=== PATIENT | female | born 1940 | race Caucasian/White ===

== ENCOUNTER 2022-04-19 13:15 | Emergency (ER) | payer OTHER ==
--- NOTE | 2022-04-19 14:31 | RAD REPORT ---
EXAM DESCRIPTION: CT - Head C Spine Cap Wo Con - 04/19/2022 2:08 pm CLINICAL HISTORY: Head and neck injury with chest and abdominal pain status post fall TECHNIQUE: Computed axial tomography of head, neck, chest, abdomen and pelvis obtained. IV and oral contrast not requested. Coronal and sagittal reconstruction performed. All CT scans are performed using dose optimization technique as appropriate and may include automated exposure control or mA/KV adjustment according to patient size. COMPARISON: None FINDINGS: An intracranial bleed is not seen. The ventricles are normal in caliber. An extra-axial fluid collection is not noted. . Fluid within the sinuses/mastoids is not seen. A cervical fracture is not seen. No dislocation is noted. The evaluation of mediastinum, domonique, vessels, solid organs and bowel are limited secondary to the lac k of contrast administration. A mediastinal hematoma is not noted. A pleural effusion is not seen. A lung contusion is not present. The liver,spleen, pancreas, adrenals,kidneys and bladder do not demonstrate a traumatic injury Contusion involves the left anterolateral subcutaneous fat of upper left pelvis IMPRESSION: No acute intracranial abnormality is seen. A cervical fracture is not visualized. If the patient continues have symptoms to suggest intracrania l/spinal cord pathology MRI be recommended Contusion involves the left anterolateral subcutaneous fat of upper left pelvis
--- NOTE | 2022-04-19 14:38 | RAD REPORT ---
EXAM DESCRIPTION: CT - Facial Bones W/ Mpr - 04/19/2022 2:08 pm CLINICAL HISTORY: Facial injury status post fall COMPARISON: none TECHNIQUE: Computed axial tomography of the face was obtained. Coronal and sagittal reconstruction w as performed. All CT scans are performed using dose optimization technique as appropriate and may include automated exposure control or mA/KV adjustment according to patient size. FINDINGS: Left cheek hematoma A fracture is not seen. A TMJ dislocation is not noted. The globes are intact. Fluid within the sinuses is not seen. IMPRESSION: Negative for a facial fracture.
--- NOTE | 2022-04-19 15:07 | RAD REPORT ---
EXAM DESCRIPTION: RAD -Hand Left 3 View - 04/19/2022 2:03 pm CLINICAL HISTORY: Left hand pain status post injury FINDINGS: No fracture or dislocation is seen. Erosive arthropathy DIP joints
--- NOTE | 2022-04-19 16:02 | ER ---
Nurse's Notes [facility] Name: Jeniffer Alba Age: 81 yrs Sex: Female : 1940 Arrival Date: 04/19/2022 Time: 13:16 Bed 9 Private MD: Diagnosis: Contusion of abdominal wall;Fall on same level from slipping, tripping and stumbling without subsequent striking against object;Unspecified injury of head, initial encounter-facial contusion Presentation: 04/19 13:40 Chief complaint: Patient states: I slipped and fell this morning and hit the cement bm7 driveway and my whole left side of my body is bruised. Coronavirus screen: At this time, the client does not indicate any symptoms associated with coronavirus-19. Ebola Screen: No symptoms or risks identified at this time. Initial Sepsis Screen: Does the patient meet any 2 criteria? No. Patient's initial sepsis screen is negative. Does the patient have a suspected source of infection? No. Patient's initial sepsis screen is negative. Risk Assessment: Do you want to hurt yourself or someone else? Patient reports no desire to harm self or others. Onset of symptoms was April 19, 2022. 13:40 Method Of Arrival: Ambulatory 7 13:40 Acuity: SHRUTHI 3 bm7 Triage Assessment: 13:42 General: Appears in no apparent distress. uncomfortable, Behavior is calm, cooperative, bm7 appropriate for age. Pain: Complains of pain in right knee. EENT: No deficits noted. No signs and/or symptoms were reported regarding the EENT system. Neuro: Level of Consciousness is awake, alert, obeys commands, Oriented to person, place, time, situation, Etiologist are equal bilaterally Pupils are PERRLA. Cardiovascular: No deficits noted. Respiratory: No deficits noted. GI: No deficits noted. No signs and/or symptoms were reported involving the gastrointestinal system. : No deficits noted. No signs and/or symptoms were reported regarding the genitourinary system. Derm: Skin is intact, is fragile, is thin, Bruising that is dark purple. Musculoskeletal: Reports pain in face, left lower quadrant, left hand, left arm and left leg. Historical: - Allergies: 13:42 No Known Allergies; bm7 - Home Meds: 13:42 Unable to obtain [Active]; bm7 - PMHx: 13:42 Hypertensive disorder; bm7 - PSHx: 13:42 Tonsillectomy; bm7 - Immunization history:: Adult Immunizations up to date, Client reports receiving the 2nd dose of the Covid vaccine, Client reports receiving the 1st dose of the Covid vaccine. - Social history:: Patient/guardian denies using tobacco products, Smoking status: Patient denies any tobacco usage or history of. Screenin:02 Abuse screen: Denies threats or abuse. Nutritional screening: No deficits noted. ap3 Tuberculosis screening: No symptoms or risk factors identified. Fall Risk Fall in past 12 months (25 points). Assessment: 16:14 Reassessment: No changes from previously documented assessment. Patient and/or family kb3 updated on plan of care and expected duration. Pain level reassessed. General: Received care of pt from day shift RN. Pt is AAO x4, sitting on stretcher without distress, family at bedside. Pt reports that she is ready for discharge. Updated pt regarding awaiting wrist xray results for discharge. Pt states understanding, no needs at this time. Vital Signs: 13:40 BP 174 / 85; Pulse 90; Resp 16; Temp 97.7(TE); Pulse Ox 100% on R/A; Weight 63.5 kg bm7 (R); Height 5 ft. 7 in. (170.18 cm); Pain 10/10; 16:00 BP 162 / 80; Pulse 80; Resp 20; Pulse Ox 99% ; Pain 4/10; kb3 13:40 Body Mass Index 21.93 (63.50 kg, 170.18 cm) bm7 ED Course: 13:16 Patient arrived in ED. as 13:38 Renetta Kee FNP-C is PHCP. kb 13:38 Flaquito Rice MD is Attending Physician. kb 13:42 Triage completed. bm7 13:42 Arm band placed on right wrist. bm7 14:01 Zari Ansari, EUGENIO is Primary Nurse. ap3 14:02 Patient has correct armband on for positive identification. Bed in low position. Call ap3 light in reach. Side rails up X 1. Pulse ox on. NIBP on. Door closed. Noise minimized. 14:05 Hand Left 3 View XRAY In Process Unspecified. EDMS 14:09 CT Traumagram (Head C Spine CAP wo con) In Process Unspecified. EDMS 14:10 CT Facial Bones W/O Con In Process Unspecified. EDMS 16:00 No provider procedures requiring assistance completed. Patient did not have IV access kb3 during this emergency room visit. 16:14 Primary Nurse role handed off by Zari Ansari, RN kb3 16:14 Yessenia Blanco, RN is Primary Nurse. kb3 Administered Medications: No medications were administered Medication: 16:00 VIS not applicable for this client. kb3 Outcome: 16:00 Discharged to home ambulatory. kb3 16:00 Condition: stable 16:00 Discharge instructions given to patient, family, Instructed on discharge instructions, follow up and referral plans. safety practices, Demonstrated understanding of instructions, follow-up care, medications. 16:01 Discharge ordered by . kb 16:18 Patient left the ED. kb3 Signatures: Dispatcher [employer] EDIL Renetta Kee, PACKER INSULATION-C PACKER INSULATION-Ckb Tigist Judd as Zari Ansari, RN RN ap3 Destiney Mir, RN EUGENIO bm7 Yessenia Blanco, RN RN kb3 Corrections: (The following items were deleted from the chart) 13:43 13:42 Home Meds: Unable to obtain; benita joy
--- NOTE | 2022-04-19 16:02 | EDPHYS ---
Physician Documentation [facility] Name: eJniffer Alba Age: 81 yrs Sex: Female : 1940 Arrival Date: 04/19/2022 Time: 13:16 Bed 9 Private MD: ED Physician Flaquito Rice HPI: 04/19 18:12 This 81 yrs old Female presents to ER via Ambulatory with complaints of Fall Injury. kb 18:12 Details of fall: The patient fell from an upright position, while walking. Onset: The kb symptoms/episode began/occurred this morning. Associated injuries: The patient sustained injury to the head, contusion, pain, injury to the abdomen, specifically the left lower quadrant, contusion, left hand, contusion. Severity of symptoms: At their worst the symptoms were moderate, in the emergency department the symptoms are unchanged. The patient has not experienced similar symptoms in the past. The patient has not recently seen a physician. Pt reports she slipped when walking out of the garage due to rain. c/o pain and bruising to left side of face, left lower quadrant and left hand. Denies loc. . Historical: - Allergies: 13:42 No Known Allergies; bm7 - Home Meds: 13:42 Unable to obtain [Active]; bm7 - PMHx: 13:42 Hypertensive disorder; bm7 - PSHx: 13:42 Tonsillectomy; bm7 - Immunization history:: Adult Immunizations up to date, Client reports receiving the 2nd dose of the Covid vaccine, Client reports receiving the 1st dose of the Covid vaccine. - Social history:: Patient/guardian denies using tobacco products, Smoking status: Patient denies any tobacco usage or history of. ROS: 18:12 Constitutional: Negative for fever, chills, and weight loss. kb 18:12 Skin: Positive for ecchymosis, swelling, of the left cheek, left eye, left jaw, left iliac crest and dorsum of left hand. 18:12 All other systems are negative. Exam: 18:12 Constitutional: This is a well developed, well nourished patient who is awake, alert, kb and in no acute distress. Eyes: Pupils equal round and reactive to light, extra-ocular motions intact. Lids and lashes normal. Conjunctiva and sclera are non-icteric and not injected. Cornea within normal limits. Periorbital areas with no swelling, redness, or edema. ENT: Moist Mucous membranes Cardiovascular: Regular rate and rhythm with a normal S1 and S2. No gallops, murmurs, or rubs. No pulse deficits. Respiratory: Respirations even and unlabored. No increased work of breathing. Talking in full sentences Abdomen/GI: Soft, non-tender. No distention MS/ Extremity: Pulses equal, no cyanosis. Neurovascular intact. Full, normal range of motion. Neuro: Awake and alert, GCS 15, oriented to person, place, time, and situation. Moves all extremities. Normal gait. Psych: Awake, alert, with orientation to person, place and time. Behavior, mood, and affect are within normal limits. 18:12 Head/face: Noted is no obvious of injury or deformity except contusion, that is superficial, of the left cheek, left eye and left jaw. 18:12 Skin: injury, contusion(s), that are superficial, of the left iliac crest. Vital Signs: 13:40 BP 174 / 85; Pulse 90; Resp 16; Temp 97.7(TE); Pulse Ox 100% on R/A; Weight 63.5 kg bm7 (R); Height 5 ft. 7 in. (170.18 cm); Pain 10/10; 16:00 BP 162 / 80; Pulse 80; Resp 20; Pulse Ox 99% ; Pain 4/10; kb3 13:40 Body Mass Index 21.93 (63.50 kg, 170.18 cm) bm7 MDM: 13:42 Patient medically screened. kb 18:12 Data reviewed: vital signs, nurses notes. Data interpreted: Pulse oximetry: on room air kb is 99 %. Interpretation: normal. Counseling: I had a detailed discussion with the patient and/or guardian regarding: the historical points, exam findings, and any diagnostic results supporting the discharge/admit diagnosis, radiology results, the need for outpatient follow up, a family practitioner, to return to the emergency department if symptoms worsen or persist or if there are any questions or concerns that arise at home. 04/19 13:44 Order name: Hand Left 3 View XRAY; Complete Time: 15:16 kb 04/19 13:44 Order name: CT Traumagram (Head C Spine CAP wo con); Complete Time: 14:34 kb 04/19 13:44 Order name: CT Facial Bones W/O Con; Complete Time: 14:43 kb Administered Medications: No medications were administered Disposition Summary: 04/19/22 16:01 Discharge Ordered Location: Home kb Condition: Stable kb Diagnosis - Contusion of abdominal wall kb - Fall on same level from slipping, tripping and stumbling without subsequent kb striking against object - Unspecified injury of head, initial encounter - facial contusion kb Followup: kb - With: Emergency Department - When: As needed - Reason: Worsening of condition Followup: kb - With: Private Physician - When: 2 - 3 days - Reason: Recheck today's complaints, Continuance of care, Re-evaluation by your physician Discharge Instructions: - Discharge Summary Sheet kb - Contusion, [id number] kb - Head Injury, Adult, [id number] kb Forms: - Medication Reconciliation Form kb - Thank You Letter kb - Antibiotic Education kb - Prescription Opioid Use kb Signatures: Dispatcher [employer] EDMS Renetta Kee, SHARRI-C RESTAURANT TEAM MEMBER-Zari Patel, RN RN ap3 Destiney Mir, RN RN bm7 Corrections: (The following items were deleted from the chart) 13:43 13:42 Home Meds: Unable to obtain; bm7 bm7
[2022-04-19 16:30] VITALS: TEMP 97.7
[2022-04-19 16:32] VITALS: BP 162/80; O2SAT 99
== END 2022-04-19 16:18 | disposition home or self-care (01) ==
LOC: ER 13:15
DX: S00.83XA Contusion of other part of head, initial encounter (principal); S30.1XXA Contusion of abdominal wall, initial encounter; W01.0XXA Fall on same level from slipping, tripping and stumbling without subsequent striking against object, initial encounter; I10 Essential (primary) hypertension
CPT/HCPCS: 70450; 70486; 71250; 72125; 76377; 99283